=== PATIENT | male | born 1970 ===

== ENCOUNTER 2018-03-05 22:52 | Emergency (ER) | payer OTHER ==
[2018-03-05 22:56] VITALS: O2SAT 98
--- NOTE | 2018-03-06 00:01 | ED PDOC ---
HPI: General Adult Time Seen by Provider: 03/05/18 23:09 Chief Complaint (Nursing): Medical Clearance Chief Complaint (Provider): Clearance for incarceration History Per: Patient History/Exam Limitations: no limitations Additional Complaint(s): 47 y/o M substance abuser with hx of asthma who was brought in by [facility] for medical clearance for incarceration. Patient states that he has a stuffy nose and mild cough productive of whitish sputum for the past couple of days. Denies fever, chills, night sweats, N/V, diarrhea, body aches. Further denies SI/HI, auditory or visual hallucination. Past Medical History Reviewed: Historical Data, Nursing Documentation, Vital Signs Vital Signs: Last Vital Signs Temp 98.0 F 03/05/18 22:54 Pulse 89 03/05/18 22:54 Resp 16 03/05/18 22:54 BP 140/74 03/05/18 22:54 Pulse Ox 98 03/05/18 22:54 - Medical History PMH: Asthma - Family History Family History: States: Unknown Family Hx - Social History Alcohol: Other (1 pint of Edna per day) Drugs: Cannabis, Prescription medications - Allergies Allergies/Adverse Reactions: Allergies Allergy/AdvReac Type Severity Reaction Status Date / Time No Known Allergies Allergy Verified 03/05/18 22:53 Review of Systems Constitutional: Negative for: Fever, Chills, Sweats Cardiovascular: Negative for: Chest Pain Respiratory: Positive for: Cough. Negative for: Shortness of Breath Gastrointestinal: Negative for: Nausea, Vomiting, Abdominal Pain Physical Exam - Reviewed Nursing Documentation Reviewed: Yes Vital Signs Reviewed: Yes - Physical Exam Appears: Positive for: Well Eye Exam: Positive for: Conjunctival injection (B/L) ENT: Positive for: Normal ENT Inspection Neck: Positive for: Normal Cardiovascular/Chest: Positive for: Regular Rate, Rhythm Respiratory: Positive for: Normal Breath Sounds Lymphatic: Positive for: Normal Exam Neurologic/Psych: Positive for: Alert, Oriented - ECG O2 Sat by Pulse Oximetry: 98 Medical Decision Making Medical Decision Making: Crisis evaluation 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 Stable for incarceration from psychiatric standpoint as per Dr. Stafford. Disposition - Clinical Impression Clinical Impression: Imprisonment and other incarceration - Patient ED Disposition Is Patient to be Admitted: No - Disposition Referrals: [facility] [Outside] Disposition: Discharged/Transfer to Law Enforcement Disposition Time: 00:56 Condition: STABLE Additional Instructions: Patient is medically and psychiatrically stable for incarceration. Print Language: GE[place]GI[place]
[2018-03-06 04:36] VITALS: BP 128/72; PULSE 92; RESP 18; TEMP 98.2
== END 2018-03-06 00:56 ==
LOC: H.ER 22:52